=== PATIENT | male | born 1960 | race Caucasian/White ===

== ENCOUNTER → 2019-05-23 11:02 | Outpatient (BNVA) | payer MEDICARE, SELFPAY | PROVIDERS: Family Provider Family Medicine; PCP Family Medicine; Visit Provider Family Medicine | DX: M79.672 Pain in left foot (principal); M25.572 Pain in left ankle and joints of left foot; M19.072 Primary osteoarthritis, left ankle and foot; M77.32 Calcaneal spur, left foot; Z98.890 Other specified postprocedural states | CPT/HCPCS: 73610; 73630 ==